=== PATIENT | female | born 1995 | race African-American/Black ===

== ENCOUNTER 2017-10-15 08:28 | Emergency (ER) | payer OTHER ==
[~2017-10-15] VITALS: Ht 152.4 cm; Wt 69.0 kg
[~2017-10-15 08:28] MED LIST: AMOXICILLIN 50500 M1 PO
[2017-10-15 08:32] VITALS: BP 109/69
[2017-10-15] MEDS ORDERED: TRAMADOL 50 MG50 MG PO (08:43)
[2017-10-15] MEDS ORDERED: NAPROSYN500 MG PO (09:14)
== END 2017-10-15 09:30 | disposition home or self-care (01) ==
LOC: ER 08:28
DX: M72.2 Plantar fascial fibromatosis (principal); M79.671 Pain in right foot; M79.672 Pain in left foot